=== PATIENT | female | born 1955 | race Two or more races ===

== ENCOUNTER 2018-11-11 16:26 | Inpatient (IN) | payer MEDICAID ==
[~2018-11-11] VITALS: Ht 160 cm; Wt 54.0 kg
[2018-11-11] MEDS ORDERED: PIPERACILLIN/TAZ 3.375G PREMIX 50 ML IV ONE (17:00)
[2018-11-11] MEDS ORDERED: INSULIN REGULAR (DRIP) 100 UNITS in SODIUM CHLORIDE 0.9% 100 ML IV ONE (17:00)
[2018-11-11] MEDS ORDERED: VANCOMYCIN 1 G PREMIX 200 ML IV ONE (17:00)
[2018-11-11] MEDS ORDERED: SODIUM CHLORIDE 0.9% 1000ML BAG (SEPSIS BOLUS) IV ONE (17:00)
[2018-11-11 17:15] LABS: CHLORIDE 91 mEq/L (98-107)
[2018-11-11 17:20] LABS: HEMATOCRIT. 32.4 % (36.0-48.0); HEMOGLOBIN. 10.9 g/dL (12.0-16.0); MEAN CORPUSCULAR HEMOGLOBIN 31.5 pg (28.0-32.0); MEAN CORPUSCULAR VOLUME 93.3 fL (81.0-99.0); MEAN PLATELET VOLUME 10.1 fl (7.4-10.4); PLATELET 106 x1000/uL (130-400); RED BLOOD CELL COUNT 3.48 mill/uL (4.2-5.4); RED CELL DISTRIBUTION WIDTH 15.2 % (11.6-14.6)
[2018-11-11 17:23] LABS: CLARITY URINE CLOUDY (CLEAR); COLOR URINE YELLOW (YELLOW); KETONES URINE 1+ (NEGATIVE); LEUKOCYTE ESTERASE URINE 2+ (NEGATIVE); NITRITE URINE NEGATIVE (NEGATIVE); OCCULT BLOOD URINE 2+ (NEGATIVE); PH URINE 5.5 (4.5-8.0); PROTEIN URINE 1+ (NEGATIVE); SPECIFIC GRAVITY URINE 1.018 (1.005-1.030); UROBILINOGEN URINE 0.2 E.U./dL (0.2-1.0)
[2018-11-11] MEDS ORDERED: INSULIN REGULAR (DRIP) 100 UNITS in SODIUM CHLORIDE 0.9% 99 ML IV NR (17:30)
[2018-11-11] MEDS ORDERED: ACETAMINOPHEN 650MG SUPP PR ONE (17:45)
[2018-11-11 18:16] LABS: NUCLEATED RED BLOOD CELLS 1 /100 WBC; PLATELET ESTIMATE DECREASED
[2018-11-11] MEDS ORDERED: NOREPINEPHRINE 4MG/250ML PMX 250 ML IV ONE ×2 (20:14→22:15)
[2018-11-11] MEDS ORDERED: CLONIDINE 0.1MG TABLET PO PRN (23:00)
[2018-11-11] MEDS ORDERED: PIPERACILLIN/TAZ 3.375G PREMIX 50 ML IV SCH (23:00)
[2018-11-11] MEDS ORDERED: GUAIFENESIN 200MG/10ML SUGAR FREE UDC PO PRN (23:00)
[2018-11-11] MEDS ORDERED: NA PHOS,M-B/NA PHOS,DI-BA ENEMA 118ML PR PRN (23:00)
[2018-11-11] MEDS ORDERED: HYDROCODONE/ACETAMINOPHEN 5/325MG TABLET PO PRN (23:00)
[2018-11-11] MEDS ORDERED: INSULIN REGULAR (DRIP) 100 UNITS in SODIUM CHLORIDE 0.9% 100 ML IV SCH (23:00)
[2018-11-11] MEDS ORDERED: DIPHENHYDRAMINE 50MG/ML VIAL IV PRN (23:00)
[2018-11-11] MEDS ORDERED: MAGNESIUM/ALUMINUM HYDROXIDE/SIMETHICONE 30ML UDC PO PRN (23:00)
[2018-11-11] MEDS ORDERED: LORAZEPAM 2MG/ML CPJ IV PRN (23:00)
[2018-11-11] MEDS ORDERED: DOCUSATE SODIUM 100MG CAPSULE PO PRN (23:00)
[2018-11-12] VITALS (88 sets, daily range): BP systolic 81–158; BP diastolic 26–90
[2018-11-12] MEDS ORDERED: POTASSIUM CHLORIDE INJ 40 MEQ in DEXT 5% WATER 250 ML IV ONE ×2
[2018-11-12] MEDS ORDERED: SODIUM CHLORIDE 0.9% 1,000 ML IV SCH ×2 (01:00→10:30)
[2018-11-12] MEDS: BLOOD SUGAR DIAGNOSTIC STRIP TEST SCH ×16 (01:00→20:57)
[2018-11-12] MEDS ORDERED: DEXTROSE 50% WATER 50ML SYRINGE IV PRN ×3 (01:15→12:45)
[2018-11-12] MEDS ORDERED: ACETAMINOPHEN 650MG SUPP PR PRN (01:15)
[2018-11-12] MEDS: PIPERACILLIN/TAZOBACTAM 2.25 G in DEXTROSE 5% WATER 50 ML IV SCH ×2 (02:14→11:05)
[2018-11-12] MEDS: NOREPINEPHRINE 4 MG in DEXT 5% WATER 246 ML IV PRN ×2 (03:03→12:20)
[2018-11-12] MEDS: INSULIN REGULAR (DRIP) 100 UNITS in SODIUM CHLORIDE 0.9% 100 ML IV SCH ×2 (03:05→04:02)
[2018-11-12 05:39] LABS: CHLORIDE 110 mEq/L (98-107); HEMATOCRIT. 29.2 % (36.0-48.0); HEMOGLOBIN. 9.7 g/dL (12.0-16.0); MEAN CORPUSCULAR HEMOGLOBIN 31.1 pg (28.0-32.0); MEAN CORPUSCULAR VOLUME 93.7 fL (81.0-99.0); MEAN PLATELET VOLUME 10.7 fl (7.4-10.4); PLATELET 112 x1000/uL (130-400); RED BLOOD CELL COUNT 3.12 mill/uL (4.2-5.4); RED CELL DISTRIBUTION WIDTH 15.7 % (11.6-14.6)
[2018-11-12 05:48] LABS: LDL CHOLESTEROL 37 mg/dL (5-100)
[2018-11-12 05:50] LABS: T4 FREE 1.34 ng/dL (0.76-1.46)
[2018-11-12 05:51] LABS: HDL CHOLESTEROL 8 mg/dL (40-59)
[2018-11-12] MEDS ORDERED: POTASSIUM CHLORIDE INJ 40 MEQ in SODIUM CHLORIDE 0.9% 1,000 ML IV SCH (07:30)
[2018-11-12] MEDS: ASPIRIN 81MG EC TABLET PO SCH (08:06)
[2018-11-12] MEDS: ONDANSETRON HCL 4MG/2ML INJ IV PRN ×3 (08:07→16:04)
[2018-11-12] MEDS: ACETAMINOPHEN 325MG TABLET PO PRN ×2 (08:07→23:58)
[2018-11-12 10:00] LABS: PLATELET ESTIMATE DECREASED
[2018-11-12] MEDS: ENOXAPARIN 30MG/0.3ML SYR SUBCUT SCH (10:43)
[2018-11-12 10:57] LABS: PHOSPHORUS 2.1 mg/dL (2.5-4.9)
[2018-11-12 12:27] LABS: T4 FREE 1.46 ng/dL (0.76-1.46)
[2018-11-12] MEDS: INSULIN LISPRO 100 UNITS/ML SUBCUT SCH ×3 (13:20→20:56)
[2018-11-12] MEDS: MORPHINE SULFATE 2 MG/ML CPJ (NOT FOR IM USE) IV PRN (13:50)
[2018-11-12] MEDS: INSULIN GLARGINE UD 100 UNITS/ML SYR SUBCUT SCH (14:21)
[2018-11-12] MEDS ORDERED: SODIUM PHOS,M-BASIC-D-BASIC 20 MM in DEXT 5% WATER 243.3333 ML IV NR (14:30)
[2018-11-12] MEDS ORDERED: LEVOFLOXACIN 500MG PREMIX 100 ML IV NR (14:30)
[2018-11-12] MEDS ORDERED: VANCOMYCIN 1 G PREMIX 200 ML IV SCH (15:00)
[2018-11-12] MEDS: FAMOTIDINE 20MG/2ML VIAL IV SCH (16:04)
[2018-11-12 16:16] LABS: CREATINE KINASE MB FRACTION 7.1 ng/mL (0.5-3.6)
[2018-11-12] MEDS: DEXT 5%/0.45% NACL KCL 20MEQ/L 1,000 ML IV SCH ×2 (16:21→23:58)
[2018-11-12] MEDS ORDERED: METOCLOPRAMIDE HCL 10MG/2ML VIAL IV PRN (19:30)
[2018-11-13] VITALS (38 sets, daily range): BP systolic 66–123; BP diastolic 34–74
[2018-11-13 00:27] LABS: CREATINE KINASE MB FRACTION 4.8 ng/mL (0.5-3.6)
[2018-11-13 05:29] LABS: HEMATOCRIT. 27.4 % (36.0-48.0); HEMOGLOBIN. 9.1 g/dL (12.0-16.0); MEAN CORPUSCULAR VOLUME 93.3 fL (81.0-99.0); PLATELET 78 x1000/uL (130-400); RED BLOOD CELL COUNT 2.94 mill/uL (4.2-5.4)
[2018-11-13 05:35] LABS: CHLORIDE 111 mEq/L (98-107)
[2018-11-13 06:03] LABS: CREATINE KINASE 193 IU/L (26-192)
[2018-11-13 06:10] LABS: CREATINE KINASE MB FRACTION 3.2 ng/mL (0.5-3.6)
[2018-11-13] MEDS: INSULIN LISPRO 100 UNITS/ML SUBCUT SCH ×4 (08:14→20:47)
[2018-11-13] MEDS: ONDANSETRON HCL 4MG/2ML INJ IV PRN (08:15)
[2018-11-13] MEDS: BLOOD SUGAR DIAGNOSTIC STRIP TEST SCH ×4 (08:15→20:36)
[2018-11-13] MEDS: MORPHINE SULFATE 2 MG/ML CPJ (NOT FOR IM USE) IV PRN (08:15)
[2018-11-13] MEDS: FAMOTIDINE 20MG/2ML VIAL IV SCH (08:15)
[2018-11-13] MEDS ORDERED: SODIUM BICARBONATE 8.4% 1 MEQ/ML 50ML SYR IV NR (09:00)
[2018-11-13] MEDS ORDERED: POTASSIUM CHLORIDE 20MEQ/PACKET PO NR (09:00)
[2018-11-13] MEDS: ENOXAPARIN 30MG/0.3ML SYR SUBCUT SCH (09:14)
[2018-11-13] MEDS: ASPIRIN 81MG EC TABLET PO SCH (09:14)
[2018-11-13 09:21] LABS: BG BASE EXCESS -12.4 mmol/L (-2.0-2.0); BG CARBOXYHEMOGLOBIN 0.3 % (0.5-1.5); BG DEOXYHEMOGLOBIN 3.7 % (0.0-5.0); BG HCO3 ACT 13.1 mmol/L (22.0-26.0); BG METHEMOGLOBIN 0.2 % (0.0-1.5); BG OXYGEN SATURATION 96.3 % (92.0-98.5); BG OXYHEMOGLOBIN 95.8 % (94.0-97.0); BG PCO2 28.7 mmHg (35.0-45.0); BG PH 7.277 (7.350-7.450); BG PO2 88.2 mmHg (75.0-100.0); BG SAMPLE SITE RIGHT BRACHIAL; BG TOTAL HEMOGLOBIN 10.2 g/dL (12.0-18.0); BG VENT MODE ROOM AIR
[2018-11-13] MEDS: INSULIN GLARGINE UD 100 UNITS/ML SYR SUBCUT SCH (10:15)
[2018-11-13] MEDS: SODIUM BICARBONATE 50 MEQ in SODIUM CHLORIDE 0.45% 1,000 ML IV SCH ×2 (10:17→18:16)
[2018-11-13 10:40] LABS: INR 1.1; PROTHROMBIN TIME 10.8 sec (9.6-11.0)
[2018-11-13 10:52] LABS: PARTIAL THROMBOPLASTIN TIME 33.8 sec (23.4-31.0)
[2018-11-13] MEDS: VANCOMYCIN 750 MG PREMIX 150 ML IV SCH ×2 (12:52→22:58)
[2018-11-13] MEDS: ACETAMINOPHEN 325MG TABLET PO PRN ×2 (12:52→18:16)
[2018-11-13] MEDS: LEVOFLOXACIN 250MG PREMIX 50 ML IV SCH (14:42)
[2018-11-13 16:02] LABS: PLATELET ESTIMATE DECREASED
[2018-11-14] VITALS (27 sets, daily range): BP systolic 92–134; BP diastolic 43–83
[2018-11-14] MEDS: ACETAMINOPHEN 325MG TABLET PO PRN ×2 (00:19→20:15)
[2018-11-14] MEDS: SODIUM BICARBONATE 50 MEQ in SODIUM CHLORIDE 0.45% 1,000 ML IV SCH (04:50)
[2018-11-14 06:15] LABS: HEMATOCRIT. 27.1 % (36.0-48.0); HEMOGLOBIN. 9.2 g/dL (12.0-16.0); MEAN CORPUSCULAR HEMOGLOBIN 31.1 pg (28.0-32.0); MEAN CORPUSCULAR VOLUME 91.1 fL (81.0-99.0); MEAN PLATELET VOLUME 10.5 fl (7.4-10.4); PLATELET 73 x1000/uL (130-400); RED BLOOD CELL COUNT 2.97 mill/uL (4.2-5.4); RED CELL DISTRIBUTION WIDTH 15.9 % (11.6-14.6)
[2018-11-14 06:45] LABS: CHLORIDE 104 mEq/L (98-107)
[2018-11-14 06:55] LABS: PHOSPHORUS 1.1 mg/dL (2.5-4.9)
[2018-11-14] MEDS ORDERED: POTASSIUM CHLORIDE 20MEQ TABLET SR PO NR (08:00)
[2018-11-14] MEDS: BLOOD SUGAR DIAGNOSTIC STRIP TEST SCH ×4 (08:13→21:52)
[2018-11-14] MEDS: ENOXAPARIN 30MG/0.3ML SYR SUBCUT SCH (08:34)
[2018-11-14] MEDS: FAMOTIDINE 20MG/2ML VIAL IV SCH (08:34)
[2018-11-14] MEDS: ASPIRIN 81MG EC TABLET PO SCH (08:34)
[2018-11-14] MEDS: DEXT 5%/0.45% NACL 1000ML 1,000 ML IV SCH (08:35)
[2018-11-14 08:38] LABS: PLATELET ESTIMATE DECREASED
[2018-11-14] MEDS: INSULIN LISPRO 100 UNITS/ML SUBCUT SCH ×4 (08:43→21:53)
[2018-11-14] MEDS ORDERED: MAGNESIUM 2 G PREMIX 50 ML IV NR (09:00)
[2018-11-14] MEDS ORDERED: POTASSIUM PHOS,M-BASIC-D-BASIC 20 MMOL in DEXT 5% WATER 243.3333 ML IV NR (09:00)
[2018-11-14] MEDS: MORPHINE SULFATE 2 MG/ML CPJ (NOT FOR IM USE) IV PRN ×2 (09:06→20:22)
[2018-11-14 09:09] LABS: BG BASE EXCESS -4.5 mmol/L (-2.0-2.0); BG CARBOXYHEMOGLOBIN 0.9 % (0.5-1.5); BG DEOXYHEMOGLOBIN 4.4 % (0.0-5.0); BG FRACTION INSPIRED OXYGEN 21; BG HCO3 ACT 18.4 mmol/L (22.0-26.0); BG METHEMOGLOBIN 0.3 % (0.0-1.5); BG OXYGEN SATURATION 95.5 % (92.0-98.5); BG OXYHEMOGLOBIN 94.4 % (94.0-97.0); BG PH 7.452 (7.350-7.450); BG PO2 77.1 mmHg (75.0-100.0); BG SAMPLE SITE RIGHT RADIAL; BG TOTAL HEMOGLOBIN 9.7 g/dL (12.0-18.0); BG VENT MODE ROOM AIR
[2018-11-14] MEDS ORDERED: VANCOMYCIN 1 G PREMIX 200 ML IV SCH (10:00)
[2018-11-14] MEDS: INSULIN GLARGINE UD 100 UNITS/ML SYR SUBCUT SCH (10:02)
[2018-11-14] MEDS ORDERED: LIDOCAINE HCL 1% 20ML VIAL (Pyxis) INJ ONE (12:39)
[2018-11-14] MEDS: LEVOFLOXACIN 250MG PREMIX 50 ML IV SCH (14:12)
[2018-11-15] VITALS (12 sets, daily range): BP systolic 91–120; BP diastolic 45–60
[2018-11-15] MEDS: DEXT 5%/0.45% NACL 1000ML 1,000 ML IV SCH (05:57)
[2018-11-15 06:20] LABS: HEMATOCRIT. 27.4 % (36.0-48.0); HEMOGLOBIN. 9.4 g/dL (12.0-16.0); MEAN CORPUSCULAR HEMOGLOBIN 31.1 pg (28.0-32.0); MEAN PLATELET VOLUME 10.7 fl (7.4-10.4); PLATELET 82 x1000/uL (130-400); RED BLOOD CELL COUNT 3.01 mill/uL (4.2-5.4); RED CELL DISTRIBUTION WIDTH 16.1 % (11.6-14.6)
[2018-11-15 06:39] LABS: CHLORIDE 105 mEq/L (98-107)
[2018-11-15 06:45] LABS: PHOSPHORUS 2.2 mg/dL (2.5-4.9)
[2018-11-15] MEDS: BLOOD SUGAR DIAGNOSTIC STRIP TEST SCH ×4 (07:58→21:58)
[2018-11-15] MEDS: FAMOTIDINE 20MG/2ML VIAL IV SCH (08:24)
[2018-11-15] MEDS: ACETAMINOPHEN 325MG TABLET PO PRN (08:24)
[2018-11-15] MEDS: ASPIRIN 81MG EC TABLET PO SCH (08:24)
[2018-11-15] MEDS: INSULIN LISPRO 100 UNITS/ML SUBCUT SCH ×4 (08:27→21:59)
[2018-11-15 09:31] LABS: PLATELET ESTIMATE DECREASED
[2018-11-15] MEDS ORDERED: POTASSIUM CHLORIDE 20MEQ/PACKET PO NR (10:00)
[2018-11-15] MEDS: INSULIN GLARGINE UD 100 UNITS/ML SYR SUBCUT SCH (10:07)
[2018-11-15] MEDS ORDERED: POTASSIUM PHOS,M-BASIC-D-BASIC 20 MMOL in DEXT 5% WATER 243.3333 ML IV NR (11:00)
[2018-11-15] MEDS ORDERED: MAGNESIUM 2 G PREMIX 50 ML IV NR (11:30)
[2018-11-15] MEDS ORDERED: MAGNESIUM 1 G PREMIX 100 ML IV ONE (12:00)
[2018-11-15] MEDS: LEVOFLOXACIN 250MG PREMIX 50 ML IV SCH (14:41)
[2018-11-15] MEDS: MORPHINE SULFATE 2 MG/ML CPJ (NOT FOR IM USE) IV PRN ×2 (18:13→21:58)
[2018-11-16] VITALS (13 sets, daily range): BP systolic 104–144; BP diastolic 50–71
[2018-11-16 06:32] LABS: BASOPHILS % 0.6 % (0.0-2.0); EOSINOPHILS % 0.1 % (0.0-5.0); HEMATOCRIT. 26.3 % (36.0-48.0); HEMOGLOBIN. 9.1 g/dL (12.0-16.0); LYMPHOCYTES % 14.5 % (20.0-50.0); MEAN CORPUSCULAR HEMOGLOBIN 31.5 pg (28.0-32.0); MEAN CORPUSCULAR VOLUME 91.5 fL (81.0-99.0); MONOCYTES % 10.5 % (2.0-8.0); NEUTROPHILS % 74.3 % (40.0-76.0); RED BLOOD CELL COUNT 2.88 mill/uL (4.2-5.4); RED CELL DISTRIBUTION WIDTH 15.9 % (11.6-14.6)
[2018-11-16 06:47] LABS: PLATELET 139 x1000/uL (130-400)
[2018-11-16] MEDS: BLOOD SUGAR DIAGNOSTIC STRIP TEST SCH ×3 (08:00→17:19)
[2018-11-16 08:20] LABS: CHLORIDE 105 mEq/L (98-107)
[2018-11-16 08:33] LABS: PHOSPHORUS 2.6 mg/dL (2.5-4.9)
[2018-11-16] MEDS: ASPIRIN 81MG EC TABLET PO SCH (08:58)
[2018-11-16] MEDS: INSULIN GLARGINE UD 100 UNITS/ML SYR SUBCUT SCH (09:01)
[2018-11-16] MEDS: INSULIN LISPRO 100 UNITS/ML SUBCUT SCH ×3 (09:02→17:25)
[2018-11-16] MEDS: MAGNESIUM OXIDE 400MG TABLET PO SCH ×2 (12:18→17:11)
[2018-11-16] MEDS ORDERED: LEVOFLOXACIN 500MG TABLET PO SCH (15:00)
== END 2018-11-16 18:53 | disposition home or self-care (01) | DRG 720 ==
LOC: EDBD 16:26 → ER 16:46 → EDBEDREQ 22:08 → EDBEDREQTM 22:08 → ENRESERV 22:52 → EDBD 11-12 00:23 → CVICU 11-12 00:23 → 5EST 11-14 15:25
PROVIDERS: ADMIT Internal Medicine; ATTEND Internal Medicine
PROC: 02HV33Z Insertion of Infusion Device into Superior Vena Cava, Percutaneous Approach (ICD-10-PCS; principal; 2018-11-14)
PROC: B548ZZA Ultrasonography of Superior Vena Cava, Guidance (ICD-10-PCS; 2018-11-14)
DX: A41.50 Gram-negative sepsis, unspecified (principal); J96.00 Acute respiratory failure, unspecified whether with hypoxia or hypercapnia; R65.21 Severe sepsis with septic shock; E11.10 Type 2 diabetes mellitus with ketoacidosis without coma; D70.9 Neutropenia, unspecified; G93.41 Metabolic encephalopathy; N39.0 Urinary tract infection, site not specified; R65.20 Severe sepsis without septic shock; I10 Essential (primary) hypertension; E86.0 Dehydration; E87.6 Hypokalemia; I42.9 Cardiomyopathy, unspecified; E44.0 Moderate protein-calorie malnutrition; I50.20 Unspecified systolic (congestive) heart failure; B96.20 Unspecified Escherichia coli [E. coli] as the cause of diseases classified elsewhere; E87.1 Hypo-osmolality and hyponatremia; N17.9 Acute kidney failure, unspecified; Z79.84 Long term (current) use of oral hypoglycemic drugs
CPT/HCPCS: 36415; 36600; 71045; 76770; 76937; 78580; 80048; 80061; 80202; 81003; 82010; 82375; 82550; 82553; 82805; 82962; 83036; 83605; 83735; 83880; 84100; 84145; 84439; 84443; 84484; 85379; 87077; 87186; 93005; 93306; 93970; 97116; 97162; 97166; 99285; C1725; J1650; J1815; J1956; J2270; J2405; J2543; J2765; J3370; J3475; J3480; J3490; J7030; J7050; J7060